=== PATIENT | male | born 1975 | race Caucasian/White ===

== ENCOUNTER 2017-01-14 07:41 | Emergency (ER) | payer SELFPAY ==
[~2017-01-14] VITALS: Ht 177.8 cm; Wt 75.0 kg
[2017-01-14 07:43] VITALS: BP 167/90; PULSE 106; RESP 20; TEMP 98.8; O2SAT 99
[2017-01-14] MEDS ORDERED: IBUP800T23 PO (07:46)
--- NOTE | 2017-01-14 08:04 | PD ---
HPI Chief Complaint: Back/ Neck Pain or Injury Time Seen by Provider: 08:04 Travel History International Travel<30 days: No Contact w/Intl Traveler<30days: No Traveled to known affect area: No History of Present Illness HPI 41-year-old male chronic with history of chronic low back pain since the age of 19, presents to emergency department with complaint of left-sided low back back pain that radiates down his left leg 2 weeks. Has history of sciatica for the past 2 weeks has been more painful than normal. Denies new or recent injury. Denies encopresis, incontinence, saddle anesthesias. Denies paresthesias, loss of sensation, decreased range of motion, decreased strength to bilateral lower extremities. Reports being ambulatory with a limp. Denies fever, vomiting, abdominal pain. Denies IV drug use or cancer. Has tried taking half of an OxyContin 30 mg and ibuprofen for symptom management. Pain is aggravated with movement and walking. Symptoms are mild in severity. Has no other medical complaints. No known allergies. No other modifying factors or associated signs and symptoms. PFSH Social History Tobacco Use: No Allergies-Medications (Allergen,Severity, Reaction): Coded Allergies: No Known Allergies (Unverified , 01/14/17) Reported Meds & Prescriptions Reported Meds & Active Scripts Active Medrol Dosepak (Methylprednisolone) 4 Mg Dspk 4 Mg PO DIRECTED Per Pharmacist direction Flexeril (Cyclobenzaprine HCl) 10 Mg Tab 10 Mg PO TID Reported Ibuprofen 800 Mg Tab 800 Mg PO Q6HR PRN Review of Systems Except as stated in HPI: all other systems reviewed are Neg Physical Exam Narrative GENERAL: Well-nourished, well-developed male patient, in no acute distress; afebrile, nontoxic-appearing SKIN: Warm and dry. HEAD: Atraumatic. Normocephalic. EYES: Pupils equal and round. No scleral icterus. No injection or drainage. ENT: Mucosa pink and moist. Airway patent. NECK: Trachea midline. CARDIOVASCULAR: Regular rate. RESPIRATORY: No accessory muscle use. GASTROINTESTINAL:. Flat. MUSCULOSKELETAL: Bilateral lower extremities supple and non-tense with 2+ pedal pulses and sensory intact; with full range of motion and 5/5 strength. 2 + DTRs bilaterally. Active dorsiflexion and extension of bilateral feet. Left straight leg raise is left for low back pain. Ambulatory in room with a limp to left lower leg. Sitting up in bed at 90. No obvious deformities. No clubbing. No cyanosis. No edema. BACK: No midline point tenderness on palpation of the lumbar spine. Tenderness on palpation of left lumbar iliosacral area. No obvious deformities. NEUROLOGICAL: Awake and alert. Oriented 3. No obvious cranial nerve deficits. Motor grossly within normal limits. Normal speech. Moves all extremities. 5/5 strength to all extremities. Sensory intact. PSYCHIATRIC: Appropriate mood and affect; insight and judgment normal. Data Data Last Documented VS Vital Signs Date Time Temp Pulse Resp B/P Pulse Ox O2 Delivery O2 Flow Rate FiO2 01/14/17 07:43 98.8 106 20 167/90 99 Room Air Orders Methocarbamol (Robaxin) (01/14/17 08:15) [facility] Medical Decision Making Medical Screen Exam Complete: Yes Emergency Medical Condition: Yes Medical Record Reviewed: Yes Differential Diagnosis Chronic low back pain, acute exacerbation of chronic low back pain, sciatica Narrative Course 41-year-old male physical exam and history of present illness consistent with low back pain with left-sided sciatica. History of chronic low back pain since the age of 19. Patient is afebrile and nontoxic-appearing. Denies fever, vomiting. No midline tenderness on palpation of the lumbar spine. Denies IV drug use, cancer. Denies encopresis, incontinence, saddle anesthesias. Patient ambulatory in the room with a limp to the left lower leg. After the patient a nonnarcotic for pain and he declined at this time. Robaxin administered in the ER. Patient has prescription for 800 mg ibuprofen at home. Robaxin and Medrol Dosepak prescribed for home. Instructed patient to follow up with primary care provider. Patient verbalizes understanding and agreement with treatment plan. Patient is medically cleared and stable for discharge. Discussed reasons to return to the emergency department. Patient agrees with treatment plan. The patients vital signs are stable and the patient is stable for outpatient follow-up and treatment. Patient discharged home, stable and in no acute distress. Diagnosis Primary Impression: Low back pain with left-sided sciatica Qualified Code: M54.42 - Left-sided low back pain with left-sided sciatica, unspecified chronicity Referrals: [facility] Primary Care Physician Patient Instructions: Chronic Back Pain (ED), General Instructions, Sciatica ( ED) Additional Instructions: Tylenol or ibuprofen as directed and as needed for pain Robaxin as prescribed and as needed for muscle spasms Heating pad and/or ice to affected area to reduce pain Avoid aggravating activities; increase activity as tolerated Follow-up with primary care provider Return to emergency department immediately with worsening of symptoms Med/Other Pt SpecificInfo: Prescription(s) given Scripts Methylprednisolone Dosepak (Medrol Dosepak)4 Mg Dspk4 Mg PO DIRECTED #1 DSPK Ref 0 Per Pharmacist direction Prov:Buffy Giron 01/14/17 Cyclobenzaprine (Flexeril)10 Mg Tab10 Mg PO TID #30 TAB Ref 0 Prov:Buffy Giron 01/14/17 Disposition: 01 DISCHARGE HOME Condition: Stable Buffy Giron Jan 14, 2017 08:04
[2017-01-14] MEDS ORDERED: CYCL1TAB29 PO (08:07)
[2017-01-14] MEDS ORDERED: MEDR4PAK PO (08:07)
[2017-01-14] MEDS ORDERED: METHOCARBAMOL 500 MG TAB PO ONE (08:15)
== END 2017-01-14 08:21 | disposition home or self-care (01) ==
LOC: NEPK 07:41
DX: M54.42 Lumbago with sciatica, left side (principal)
CPT/HCPCS: 99284